=== PATIENT | male | born 1995 ===

== ENCOUNTER 2024-10-30 20:36 | Emergency (ER) | payer OTHER ==
[~2024-10-30] VITALS: Ht 180.3 cm; Wt 84.8 kg
[~2024-10-30 20:36] MED LIST: BENZ1 PO; CLON1 PO; FISH OIL 1,2001 EAC7 PO; OLAN5 PO; PERP4 PO; PROP10 PO
[2024-10-30 21:18] VITALS: BP 137/84
[2024-10-30] MEDS ORDERED: CEPH500 PO (23:10)
[2024-10-30] MEDS ORDERED: TERB250 PO (23:10)
== END 2024-10-30 23:46 | disposition home or self-care (01) ==
LOC: ER 20:36
DX: B35.3 Tinea pedis (principal); Z79.899 Other long term (current) drug therapy; Z79.2 Long term (current) use of antibiotics; F17.200 Nicotine dependence, unspecified, uncomplicated
CPT/HCPCS: 99282